=== PATIENT | female | born 1955 | race Caucasian/White ===

== ENCOUNTER → 2016-12-18 | Outpatient (CLI) | payer OTHER ==
[~2016-12-18] VITALS: Ht 162.6 cm; Wt 81.8 kg
[~2016-12-18] MED LIST: ASPI-558 PO; CITA-108 PO; DOXY-124 PO; LISI-126 PO; REGADENOSON 0.4mg/5ml INJECTION IV ONE; SALINE FLUSH 10ml SYRINGE ONE; [UNRECOGNIZED DRUG - CODE] PO; [UNRECOGNIZED DRUG - CODE] PO
--- NOTE | 2016-12-19 08:01 | ESTF ---
DATE OF PROCEDURE 12/18/2016 PROCEDURE Pharmacological stress nuclear scan. INDICATION Preop cardiac clearance. DESCRIPTION OF PROCEDURE The patient was injected with technetium-99m Myoview dose of 12.9 mCi. A Lexiscan dose of 0.4 mg was followed by technetium-99m Myoview dose of 32.9 mCi. Stress and rest perfusion images were obtained per protocol. Rest EKG showed sinus bradycardia, 56 beats per minute, first-degree AV block, nonspecific T-wave abnormality in AVL. During pharmacological stress, occasional PVCs were present. There was no ST depression or elevation diagnostic of ischemia. Nonspecific ST-T abnormality was present, nothing additional. Stress and rest perfusion images were reviewed. Slightly reduced uptake in the anteroseptum was more evident on rest as compared with the stress images consistent with breast tissue attenuation artifact. A normal myocardial perfusion scan is present. Normal gated images. Normal wall motion. Normal contractility. LVEF of 65% on stress images, 72% on rest images. IMPRESSION: 1. Inability to exercise on treadmill. 2. Pharmacological stress nuclear scan clinically, electrically and scintigraphically negative for ischemia with normal LV ejection fraction. MTDD
== END ==
LOC: IMA 09:54
PROVIDERS: ATTEND Internal Medicine Cardiovascular Disease
DX: I20.9 Angina pectoris, unspecified (principal)
CPT/HCPCS: 78452; 93017; A9502; J2785